=== PATIENT | male | born 1975 | race Caucasian/White ===

== ENCOUNTER 2017-09-10 12:24 | Emergency (ER) | payer BC ==
[~2017-09-10] VITALS: Ht 175.3 cm; Wt 79.4 kg
[2017-09-10] MEDS ORDERED: SODIUM CHLORIDE 0.9% 1000ML 1,000 ML IV STA (12:29)
[2017-09-10] MEDS ORDERED: ASPIRIN 81 MG CHEW TAB PO ONE (12:30)
[2017-09-10 12:59] LABS: BASOPHILS % 0.7 % (0.0-1.0); EOSINOPHILS # (AUTO) 0.1 (0.0-0.4); HEMATOCRIT 41.2 % (38.2-49.6); HEMOGLOBIN 14.7 g/dL (14.0-18.0); LYMPHOCYTES # (AUTO) 2.9 (1.0-3.2); LYMPHOCYTES % 47.4 % (18.0-39.1); MEAN CORPUSCULAR HEMOGLOBIN 32.7 pg (28-32); MEAN CORPUSCULAR HGB CONC 35.7 g/dL (31-35); MEAN CORPUSCULAR VOLUME 91.6 fL (81-99); MONOCYTES # (AUTO) 0.6 (0.2-0.8); MONOCYTES % 10.4 % (4.4-11.3); NEUTROPHILS # (AUTO) 2.4 (2.1-6.9); NEUTROPHILS % 40.2 % (38.7-80.0); PLATELET COUNT 200 x10e3/uL (140-360); RED CELL DISTRIBUTION WIDTH 12.3 % (11.7-14.4)
[2017-09-10 13:11] LABS: INR 1.05; PARTIAL THROMBOPLASTIN TIME 24.4 seconds (23.8-35.5); PROTHROMBIN TIME 12.9 seconds (11.9-14.5)
--- NOTE | 2017-09-10 13:32 | Diagnostic Imaging Report ---
Exam: Head CT without contrast History: Dizziness Comparison studies: None Technique: Axial images were obtained from the skull base to the vertex. Coronal and sagittal images reconstructed from the axial data. Intravenous contrast: None Findings: Scalp: No abnormalities. Bones: No fractures, blastic or lytic lesions. Brain sulci: Appropriate for age. Ventricles: Normal in size and configuration. No hydrocephalus. Extra-axial spaces: No masses, no fluid collection. Parenchyma: No abnormal densities. No masses, hemorrhage, acute or chronic vascular insults. Sellar/suprasellar region: No abnormalities. Craniocervical junction: Patent foramen magnum. No Chiari one malformation. Incidental findings: Plate and screw construct along the left zygomaticomaxillary buttresses presumably for previous fracture. IMPRESSION: No intracranial abnormalities. Signed by: Dr. Isaiah Howell M.D. on 09/10/2017 1:29 PM
--- NOTE | 2017-09-10 15:33 | Diagnostic Imaging Report ---
PROCEDURE: CHEST SINGLE (PORTABLE) COMPARISON: None. INDICATIONS: DIZZY, SWEATING FINDINGS: LUNGS: No consolidations or edema. PLEURA: No effusions or pneumothorax. HEART \T\ MEDIASTINUM: The cardiomediastinal silhouette is unremarkable. BONES \T\ SOFT TISSUES: No acute findings. UPPER ABDOMEN: Air in the stomach in the left upper quadrant is felt to be within the lumen rather than gastric wall given smooth contour and lack of bubbly appearance. CONCLUSION: No acute thoracic abnormality. Dictated by: KATELIN VALERIO M.D. on 09/10/2017 at 15:38 Electronically approved by: KATELIN VALERIO M.D. on 09/10/2017 at 15:38
[2017-09-10 15:34] LABS: ANION GAP 12.4 mmol/L (8-16); CARBON DIOXIDE 28 mmol/L (22-32); CHLORIDE 103 mmol/L (101-111); POTASSIUM 3.4 mmol/L (3.6-5.1); SODIUM 140 mmol/L (136-144)
[2017-09-10 15:35] LABS: BLOOD UREA NITROGEN 16 mg/dL (8-26); BUN/CREATININE RATIO 16 (6-25); EST GLOMERULAR FILTRATION RATE > 60 ML/MIN (60-); GLUCOSE 110 mg/dL (74-118)
[2017-09-10] MEDS ORDERED: MECLIZINE HCL 12.5 MG TAB PO ONE (16:00)
--- NOTE | 2017-09-10 16:47 | Diagnostic Imaging Report ---
PROCEDURE:ABDOMEN COMP INCL UPR OR DECUB INDICATION:Abnormal chest x-ray. COMPARISON:[facility], DX, CHEST SINGLE (PORTABLE), 09/10/2017, 14:22. FINDINGS: Nonobstructive bowel gas pattern. No evidence of pneumoperitoneum. No pneumatosis. No abnormal calcifications project over the genitourinary system. 2 right-sided pelvic phleboliths. Lung bases are clear. No acute bony abnormalities. Mild degenerative changes in the right hip joint. CONCLUSION: 1. No evidence of pneumoperitoneum or pneumatosis. Lung bases are clear. 2. Nonobstructive bowel gas pattern. Jasper Carrillo M.D. Dictated by: Jasper Carrillo M.D. on 09/10/2017 at 16:52 Electronically approved by: Jasper Carrillo M.D. on 09/10/2017 at 16:52
[2017-09-10 17:37] LABS: CLARITY,URINE CLEAR (CLEAR); COLOR,URINE YELLOW (YELLOW); LEUKOCYTE ESTERASE ,URINE NEGATIVE (NEGATIVE); NITRITE,URINE NEGATIVE (NEGATIVE)
[2017-09-10 17:38] LABS: AMPHETAMINES SCREEN,URINE NEGATIVE (NEGATIVE); BENZODIAZEPINES SCREEN,URINE NEGATIVE (NEGATIVE); BILIRUBIN,URINE NEGATIVE (NEGATIVE); KETONES,URINE NEGATIVE (NEGATIVE); PHENCYCLIDINE SCREEN,URINE NEGATIVE (NEGATIVE); PROTEIN,URINE DIPSTICK NEGATIVE (NEGATIVE); URINE UROBILINOGEN 0.2 mg/dL (0.2 - 1)
[2017-09-10 17:50] VITALS: BP 129/70
[2017-09-10 17:55] LABS: EPITHELIAL CELLS,URINE RARE /LPF
[2017-09-10 17:56] LABS: RBC,URINE 0-5 /HPF (0-5)
[2017-09-10 21:08] LABS: ALANINE AMINOTRANSFERASE 75 IU/L (0-55); ALBUMIN 4.4 g/dL (3.5-5.0); ALBUMIN/GLOBULIN RATIO 1.8 (0.8-2.0); ALKALINE PHOSPHATASE 62 IU/L (40-150); CALCIUM 9.5 mg/dL (8.4-10.2); CREATINE KINASE 55 IU/L (30-200)
== END 2017-09-10 17:20 | disposition home or self-care (01) ==
LOC: ER 12:24
DX: R42 Dizziness and giddiness (principal); R11.0 Nausea; H81.399 Other peripheral vertigo, unspecified ear
CPT/HCPCS: 36415; 70450; 71045; 80053; 80307; 81001; 82550; 82553; 84484; 85025; 85610; 85730; 93005; 99284; J7030